=== PATIENT | female | born 2005 ===

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

== ENCOUNTER → 2024-01-29 09:56 | Outpatient (BNV) | payer MEDICAID, SELFPAY | PROVIDERS: PCP Nurse Practitioner Primary Care; Visit Provider Radiology Diagnostic Radiology | DX: M54.41 Lumbago with sciatica, right side (principal) | CPT/HCPCS: 72148 ==

== ENCOUNTER 2024-01-29 09:57 | Outpatient (REF) | payer MEDICAID, SELFPAY ==
--- NOTE | ~2024-01-29 | MR_ITS ---
EXAMINATION: MR LUMBAR SPINE WITHOUT CONTRAST CLINICAL INFORMATION: Chronic low back pain. Right lower extremity weakness and numbness. COMPARISON: None available. TECHNIQUE: MRI of the lumbar spine was obtained using routine sequences without contrast. FINDINGS: Last rib-bearing vertebra labeled T12. No bone marrow STIR signal abnormality. Disc desiccation, L4-5 and L5-S1. Multilevel small Schmorl nodes, L2-3. The alignment is normal. The conus medullaris ends at inferior endplate of T12 with normal signal. T12-L1: No central spinal canal stenosis or neuroforamina stenosis. L1-2: No central spinal canal stenosis or neural foramina stenosis. L2-3: Broad-based disc bulging. Facet joint hypertrophy. Reduced AP diameter of the thecal sac. L3-4: Broad-based disc bulging. Facet joint hypertrophy. Reduced AP diameter of the thecal sac. L4-5: Central broad-based disc herniation encroaching likely compressing the neural elements of the thecal sac. Bilateral facet joint hypertrophy. No gross neuroforamina stenosis. L5-S1: Central disc herniation resulting in decreased AP diameter of the thecal sac. Circumferential prominent epidural fat reducing the AP diameter of the thecal sac. No neuroforamina stenosis. No prevertebral compartment hematoma, mass or fluid collection. MR/MR lumbar spine wo con IMPRESSION: Central disc herniations at L4-5 and L5-S1 encroaching likely compressing the neural elements of the thecal sac. Epidural lipomatosis, L5-S1. Electronically signed by: Bay Cifuentes MD 01/29/2024 03:23 PM EDT
== END 2024-01-29 09:58 | disposition home or self-care (01) ==
LOC: HO.MRI 09:57
PROVIDERS: PCP Nurse Practitioner Primary Care; Visit Provider Nurse Practitioner Primary Care
DX: M54.41 Lumbago with sciatica, right side (principal); G89.29 Other chronic pain
CPT/HCPCS: 72148

== ENCOUNTER 2024-02-09 13:48 | Outpatient (AMB) | payer MEDICAID, SELFPAY ==
--- NOTE | 2024-02-09 13:59 | A.SPINEOV_ITS ---
Vital Signs 02/09/24 14:01 Height 5 ft 10 in Intake Visit Reasons: Chronic right sided low back pain with sciatica Intake Note: Ms. Yuan is here today c/o mid back pain that radiates to the shoulders with Left leg numbness and tingling. Lunchroom Worker Required: No Allergies No Known Allergies Allergy (Verified 02/09/24 14:00) Assessment & Plan Assessment & Plan (1) Lumbar radiculopathy: Code(s): M54.16 - Radiculopathy, lumbar region Category: Medical Plan Dear colleague, Thank you for referring Crystal to our office today. She is a pleasant 18 year old female who comes in today with a CC of low back pain and shooting pain into her right lower extremity. She reports this has been ongoing for the past 2 months. She denies any inciting incident, and states that she awoke abruptly with difficulty moving her right leg and right leg pain. When describing her radicular pain she states it starts in her low back shoots down her leg into her right lateral calf. She reports this pain is accompanied by tingling sensation diffusely throughout her leg. She denies any involvement of her right foot. She has tried [id number]-ydl-railaay remedies including naproxen and icy hot lotion. She has attempted to utilize prescription muscle relaxers as well. She did complete a course of physical therapy but states it was predominantly for her back pain that was present prior to this acute onset right leg pain. She denies any bowel/bladder incontinence, and denies any numbness or tingling around her perineal area. PMH: None reported. No surgical history. Social hx: Patient does not smoke, reports no substance use. Medications: Naproxen, unspecified muscle relaxer, ferrous sulfate, estradiol. Allergies: NKDA. Physical exam: The patient has 5/5 strength in her upper and lower extremities. She has no significant sensational deficits on examination. Her reflexes are 1+ hypoactive in the bilateral patella. There are 2+ elsewhere. She ambulates well without an antalgic gait. Weakly (+) right-sided straight leg raise. (-) left-sided straight leg raise. (-) clonus. (-) Solis's. Imaging review: MRI of the lumbar spine completed here at [facility] shows a posterior disc bulge at L4-5 causing mild-moderate central canal and bilateral foraminal stenosis, slightly worse on the right. There is also a posterior disc bulge at L5-S1 which is only causing mild central canal stenosis. Impression: Crystal is a pleasant 18-year-old female comes in today with a chief complaint of low back pain and shooting pain to her right lower extremity. Her pain is likely a result of the posterior disc bulge at L4-5. We discussed the possibility of referral for injections at L4-5, as both a conservative and diagnostic measure. This would be good for pain control and for localizing a single-level as the primary pain generator. We are typically more conservative in our approach to treat disc herniations in our younger patients. She was rather averse to the idea of injections and states that she ?hates needles. She also seems rather averse to the idea of surgery. I recommended a alternative of a course of steroids and physical therapy to see if further conservative measures can help resolve her pain, and encouraged the disc to resorb back into the disc space. She is agreeable to this. If she continues to have pain despite a round of methylprednisone and physical therapy I would encourage her to reach back out to our office for a pain management referral for cortisone injections prior to a surgical intervention. She understands that she should contact our office if she has any perineal numbness/tingling or bowel/bladder incontinence. Thank you for allowing us to care for your patient. The total time spent with this visit with this patient was 45 minutes reviewing history, physical exam, MRI imaging review, and implementation of treatment plan or further diagnostic testing Terence Ellis MD,PhD [facility] Medications: New methylprednisolone (Medrol (Bryce)) PO PER PKG DIR 21 ea 0RF Coding Level of Care Code New Pt Level 4 (00205) Diagnoses Lumbar radiculopathy M54.16
== END 2024-02-09 14:58 | disposition home or self-care (01) ==
PROVIDERS: PCP Nurse Practitioner Primary Care; Referring Provider Nurse Practitioner Primary Care; Visit Provider Physician Assistant
DX: M54.16 Radiculopathy, lumbar region (principal)
CPT/HCPCS: 99204

== ENCOUNTER → 2024-02-09 13:48 | Outpatient (BNVA) | payer MEDICAID, SELFPAY | PROVIDERS: PCP Nurse Practitioner Primary Care; Referring Provider Nurse Practitioner Primary Care; Visit Provider Physician Assistant | DX: M54.16 Radiculopathy, lumbar region (principal) | CPT/HCPCS: 99212 ==